=== PATIENT | male | born 1990 | race Two or more races ===

== ENCOUNTER 2021-07-29 09:27 | Inpatient (IN) | payer OTHER ==
[~2021-07-29] VITALS: Ht 177.8 cm; Wt 95.0 kg
[2021-07-29] VITALS (13 sets, daily range): BP systolic 96–144; BP diastolic 46–80
--- NOTE | 2021-07-29 10:58 | NUR ---
SS following for discharge planning. Pt's RN contacted SS requesting PAT team referral for Tylenol Overdose. PAT team referral made and Can coming to visit with pt. SS will continue to follow for discharge planning.
--- NOTE | 2021-07-29 10:59 | NUR ---
Patient transferred from [place] for Tylenol overdose. When asked if he intended to kill himself, patient states, "no, I just had such a bad migraine headache and my and I were arguing that I took a whole bunch of tylenol." Describes taking 2 small bottles of unknown strength of tylenol, bottles were half to 3/4 full.
[2021-07-29 11:20] LABS: BASO % 0 % (0-3); EOS % 0 % (0-3); HEMATOCRIT 43.2 % (39.0-53.0); HEMOGLOBIN 15.2 g/dL (13.0-17.5); LYMPH # 1.9 x10^3/uL (1.0-4.8); LYMPH % 29 % (24-48); MEAN CORPUSCULAR HEMOGLOBIN 30 pg (25-35); MEAN CORPUSCULAR HGB CONC 35 g/dL (31-37); MEAN CORPUSCULAR VOLUME 86 fL (79-100); MONO # 0.4 x10^3/uL (0.0-1.1); MONO % 7 % (0-9); NEUT # 4.1 x10^3/uL (1.8-7.7); NEUT % 63 % (31-73); PLATELET COUNT 192 x10^3/uL (140-400); RED BLOOD COUNT 5.01 x10^6/uL (4.30-5.70); RED CELL DISTRIBUTION WIDTH 12.5 % (11.5-14.5); WHITE BLOOD COUNT 6.5 x10^3/uL (4.0-11.0)
[2021-07-29 11:38] LABS: ALBUMIN 3.7 g/dL (3.4-5.0); CALCIUM 8.7 mg/dL (8.5-10.1); CREATININE 1.3 mg/dL (0.7-1.3); GFR 64.8; TOTAL BILIRUBIN 0.7 mg/dL (0.2-1.0); TOTAL PROTEIN 7.3 g/dL (6.4-8.2)
[2021-07-29 11:45] LABS: ACETAMIN 77.4 mcg/ml (10-30)
--- NOTE | 2021-07-29 12:11 | PDOC1 ---
History and Physical Date of Service: DOS: DATE: 07/29/21 TIME: 11:56 Chief Complaint: Chief Complain: Tylenol ingestion and overdose History of Present Illness: HPI: 31-year-old otherwise healthy male who presents to this facility after being transferred from [facility] for Tylenol overdose. Apparently patient was having argument with spouse and he was trying to look for the spouse after she ran away. He pulled aside to the parking lot because of a headache. Apparently he stated he took Tylenol and ibuprofen but he was not trying to harm himself. He is not certain how much he took but he brought the handfuls of any ticks probably about 20 which is about a handful of Tylenol and ibuprofen. Most of the medication came from 3 bottles which were 500 mg tablets and some 650 extended release tablets. Patient seen this morning at bedside with no complaints. Denies any nausea vomiting or headaches or abdominal pain or jaundice seen.. Past Medical/Surgical History: PMH/PSH: No pertinent past medical or past surgical history Allergies: Allergies: Coded Allergies: No Known Drug Allergies (Unverified , 07/29/21) Family History: Family History: No relevant findings in the chart and reviewed Social History: Social History: Denies any alcohol, tobacco or drug abuse Current Medications: Current Medications Denies any current medications ROS: Review of Systems Review of System REVIEW OF SYSTEMS: GENERAL: Denies weakness SKIN: No bruising, hair changes or rashes. EYES: No blurred, double or loss of vision. NOSE AND THROAT: No history of nosebleeds, hoarseness or sore throat. HEART: No history of palpitations, chest pain or shortness of breath on exertion. LUNGS: Denies cough, hemoptysis, wheezing or shortness of breath. GASTROINTESTINAL: Denies changes in appetite, nausea, vomiting, diarrhea or constipation. GENITOURINARY: No history of frequency, urgency, hesitancy or nocturia. NEUROLOGIC: Denies history of numbness, tingling, or tremor. PSYCHIATRIC: No history of panic, anxiety or depression. ENDOCRINE: No history of heat or cold intolerance, polyuria or polydipsia. EXTREMITIES: Denies joint pain, pain on walking or stiffness. Physical Exam: Vital Signs: Vital Signs Date Time Temp Pulse Resp B/P (MAP) Pulse Ox O2 Delivery O2 Flow Rate FiO2 4/21/22 11:22 98.2 61 18 127/64 (85) 99 Room Air 98.2 Physcial Exam: GEN: No apparent distress. Alert and oriented HEENT: Normal cephalic, atraumatic, external auditory canals are patent EYES: Extraocular muscles are intact, pupil are equally round and reactive to light and accommodation MUSCULOSKELETAL: Well developed , well nourished, good range of motion ENDOCRINE: No thyromegaly was palpated LYMPHATICS: No cervical chain or axillary nodes were noted HEMATOPOIETIC: No bruising NECK: Supple, no JVD, no thyromegaly was noted LUNGS: Clear to auscultation in all lung meier without rhonchi or wheezing HEART: RRR, S!, S2 present. Peripheral pulses intact, no obvious murmurs noted ABDOMEN: Soft, nontender. Positive bowel sounds, no organomegaly, normal bowel sounds EXTREMITIES: Without clubbing, cyanosis, or edema. Pedal pulses intact. Negative Homans sign NEUROLOGIC: Normal speech and tone. A&O x 3, moves all extremities, no obvious focal deficits PSYCHIATRIC: Normal affect, normal mood. Stable SKIN: No ulcerations or rashes, good skin turgor, no jaundice VASCULAR: Good capillary refill, neurovascular bundle appears to be intact Labs: Labs: Laboratory Tests Test 07/29/21 11:05 White Blood Count 6.5 x10^3/uL (4.0-11.0) Red Blood Count 5.01 x10^6/uL (4.30-5.70) Hemoglobin 15.2 g/dL (13.0-17.5) Hematocrit 43.2 % (39.0-53.0) Mean Corpuscular Volume 86 fL (79-100) Mean Corpuscular Hemoglobin 30 pg (25-35) Mean Corpuscular Hemoglobin Concent 35 g/dL (31-37) Red Cell Distribution Width 12.5 % (11.5-14.5) Platelet Count 192 x10^3/uL (140-400) Neutrophils (%) (Auto) 63 % (31-73) Lymphocytes (%) (Auto) 29 % (24-48) Monocytes (%) (Auto) 7 % (0-9) Eosinophils (%) (Auto) 0 % (0-3) Basophils (%) (Auto) 0 % (0-3) Neutrophils # (Auto) 4.1 x10^3/uL (1.8-7.7) Lymphocytes # (Auto) 1.9 x10^3/uL (1.0-4.8) Monocytes # (Auto) 0.4 x10^3/uL (0.0-1.1) Eosinophils # (Auto) 0.0 x10^3/uL (0.0-0.7) Basophils # (Auto) 0.0 x10^3/uL (0.0-0.2) Sodium Level 138 mmol/L (136-145) Potassium Level 3.0 mmol/L (3.5-5.1) Chloride Level 101 mmol/L (98-107) Carbon Dioxide Level 24 mmol/L (21-32) Anion Gap 13 (6-14) Blood Urea Nitrogen 17 mg/dL (8-26) Creatinine 1.3 mg/dL (0.7-1.3) Estimated GFR (Cockcroft-Gault) 64.8 BUN/Creatinine Ratio 13 (6-20) Glucose Level 132 mg/dL (70-99) Calcium Level 8.7 mg/dL (8.5-10.1) Total Bilirubin 0.7 mg/dL (0.2-1.0) Aspartate Amino Transf (AST/SGOT) 56 U/L (15-37) Alanine Aminotransferase (ALT/SGPT) 69 U/L (16-63) Alkaline Phosphatase 61 U/L (46-116) Total Protein 7.3 g/dL (6.4-8.2) Albumin 3.7 g/dL (3.4-5.0) Albumin/Globulin Ratio 1.0 (1.0-1.7) Acetaminophen Level 77.4 mcg/ml (10-30) Acetaminophen Last Dose Date 07/28/21 Acetaminophen Last Dose Time 1500 Laboratory Tests Test 07/29/21 11:05 White Blood Count 6.5 x10^3/uL (4.0-11.0) Red Blood Count 5.01 x10^6/uL (4.30-5.70) Hemoglobin 15.2 g/dL (13.0-17.5) Hematocrit 43.2 % (39.0-53.0) Mean Corpuscular Volume 86 fL (79-100) Mean Corpuscular Hemoglobin 30 pg (25-35) Mean Corpuscular Hemoglobin Concent 35 g/dL (31-37) Red Cell Distribution Width 12.5 % (11.5-14.5) Platelet Count 192 x10^3/uL (140-400) Neutrophils (%) (Auto) 63 % (31-73) Lymphocytes (%) (Auto) 29 % (24-48) Monocytes (%) (Auto) 7 % (0-9) Eosinophils (%) (Auto) 0 % (0-3) Basophils (%) (Auto) 0 % (0-3) Neutrophils # (Auto) 4.1 x10^3/uL (1.8-7.7) Lymphocytes # (Auto) 1.9 x10^3/uL (1.0-4.8) Monocytes # (Auto) 0.4 x10^3/uL (0.0-1.1) Eosinophils # (Auto) 0.0 x10^3/uL (0.0-0.7) Basophils # (Auto) 0.0 x10^3/uL (0.0-0.2) Sodium Level 138 mmol/L (136-145) Potassium Level 3.0 mmol/L (3.5-5.1) Chloride Level 101 mmol/L (98-107) Carbon Dioxide Level 24 mmol/L (21-32) Anion Gap 13 (6-14) Blood Urea Nitrogen 17 mg/dL (8-26) Creatinine 1.3 mg/dL (0.7-1.3) Estimated GFR (Cockcroft-Gault) 64.8 BUN/Creatinine Ratio 13 (6-20) Glucose Level 132 mg/dL (70-99) Calcium Level 8.7 mg/dL (8.5-10.1) Total Bilirubin 0.7 mg/dL (0.2-1.0) Aspartate Amino Transf (AST/SGOT) 56 U/L (15-37) Alanine Aminotransferase (ALT/SGPT) 69 U/L (16-63) Alkaline Phosphatase 61 U/L (46-116) Total Protein 7.3 g/dL (6.4-8.2) Albumin 3.7 g/dL (3.4-5.0) Albumin/Globulin Ratio 1.0 (1.0-1.7) Acetaminophen Level 77.4 mcg/ml (10-30) Acetaminophen Last Dose Date 07/28/21 Acetaminophen Last Dose Time 1500 Images: Images No recent images to review Assessment/Plan Assessment/Plan Unintentional acetaminophen overdose Mildly elevated LFTs Lactic acidemia Hypokalemia Admit to ICU for further management Continue 21-hour IV Mucomyst infusion Repeat LFTs in the morning Serial abdominal exams IV KCl replacement Continue IV fluids SCD for DVT prophylaxis Protonix GI prophylaxis Regular diet CODE STATUS full Discussed with RN and SW Disposition inpatient management as above DPOA: Spouse A total of 32 minutes of critical care time was spent in reviewing chart, labs, and images. Discussed with RN and SW. Justifications for Admission Other Justification TINO BARRAZA MD Jul 29, 2021 12:11
[2021-07-29] MEDS ORDERED: ONDANSETRON PF 4 MG/2 ML VIAL. IVP PRN (12:15)
[2021-07-29] MEDS ORDERED: DOCUSATE SODIUM 100 MG CAPSULE. PO PRN (12:15)
[2021-07-29] MEDS ORDERED: SENNOSIDES 8.6 MG TABLET PO PRN (12:15)
[2021-07-29] MEDS: POTASSIUM CHLORIDE 20 MEQ TABLET.ER. PO SCH ×2 (12:23→21:17)
[2021-07-29 17:28] LABS: TOTAL BILIRUBIN 0.5 mg/dL (0.2-1.0)
[2021-07-29 17:57] LABS: ACETAMIN 29.9 mcg/ml (10-30)
--- NOTE | 2021-07-29 18:29 | NUR ---
Poison control called and lab results provided to them. Recommendation is to continue acetylcysteine gtt overnight and recheck liver panel, acetaminophen and PT/INR in a.m.
[2021-07-29] MEDS ORDERED: ACETYLCYSTEINE IV SCH ×3 (18:30→21:30)
[2021-07-29] MEDS ORDERED: DEXTROSE 5% IV SCH ×3 (18:30→21:30)
[2021-07-30] VITALS (9 sets, daily range): BP systolic 112–144; BP diastolic 61–85
[2021-07-30 07:19] LABS: BASO % 1 % (0-3); EOS # 0.1 x10^3/uL (0.0-0.7); EOS % 1 % (0-3); HEMATOCRIT 43.2 % (39.0-53.0); HEMOGLOBIN 14.9 g/dL (13.0-17.5); LYMPH # 1.9 x10^3/uL (1.0-4.8); LYMPH % 36 % (24-48); MEAN CORPUSCULAR HEMOGLOBIN 30 pg (25-35); MEAN CORPUSCULAR HGB CONC 35 g/dL (31-37); MEAN CORPUSCULAR VOLUME 87 fL (79-100); MONO # 0.4 x10^3/uL (0.0-1.1); MONO % 8 % (0-9); NEUT # 2.9 x10^3/uL (1.8-7.7); NEUT % 54 % (31-73); PLATELET COUNT 156 x10^3/uL (140-400); RED BLOOD COUNT 4.99 x10^6/uL (4.30-5.70); RED CELL DISTRIBUTION WIDTH 12.3 % (11.5-14.5); WHITE BLOOD COUNT 5.3 x10^3/uL (4.0-11.0)
[2021-07-30 07:28] LABS: ALBUMIN 3.1 g/dL (3.4-5.0); CALCIUM 8.6 mg/dL (8.5-10.1); CREATININE 1.1 mg/dL (0.7-1.3); GFR 78.6; MAGNESIUM 1.8 mg/dL (1.8-2.4); PHOSPHORUS 2.9 mg/dL (2.6-4.7); POTASSIUM 3.9 mmol/L (3.5-5.1); TOTAL BILIRUBIN 0.7 mg/dL (0.2-1.0); TOTAL PROTEIN 6.3 g/dL (6.4-8.2)
[2021-07-30 07:30] LABS: ACETAMIN < 2 mcg/ml (10-30)
--- NOTE | 2021-07-30 10:52 | PDOC3 ---
Discharge Summary Visit Information Date of Admission: Jul 29, 2021 Date of Discharge: Jul 30, 2021 Final Diagnosis headache Unintentional acetaminophen overdose Mildly elevated LFTs Lactic acidemia Hypokalemia Brief Hospital Course Allergies Allergies Coded Allergies Type Severity Reaction Last Updated Verified No Known Drug Allergies 07/29/21 No Vital Signs Vital Signs Date Time Temp Pulse Resp B/P (MAP) Pulse Ox O2 Delivery O2 Flow Rate FiO2 07/30/21 08:00 98.5 72 18 132/71 (91) 99 Room Air 98.5 Lab Results Laboratory Tests Test 07/29/21 11:05 07/29/21 16:48 07/30/21 06:50 White Blood Count 6.5 x10^3/uL (4.0-11.0) 5.3 x10^3/uL (4.0-11.0) Red Blood Count 5.01 x10^6/uL (4.30-5.70) 4.99 x10^6/uL (4.30-5.70) Hemoglobin 15.2 g/dL (13.0-17.5) 14.9 g/dL (13.0-17.5) Hematocrit 43.2 % (39.0-53.0) 43.2 % (39.0-53.0) Mean Corpuscular Volume 86 fL (79-100) 87 fL (79-100) Mean Corpuscular Hemoglobin 30 pg (25-35) 30 pg (25-35) Mean Corpuscular Hemoglobin Concent 35 g/dL (31-37) 35 g/dL (31-37) Red Cell Distribution Width 12.5 % (11.5-14.5) 12.3 % (11.5-14.5) Platelet Count 192 x10^3/uL (140-400) 156 x10^3/uL (140-400) Neutrophils (%) (Auto) 63 % (31-73) 54 % (31-73) Lymphocytes (%) (Auto) 29 % (24-48) 36 % (24-48) Monocytes (%) (Auto) 7 % (0-9) 8 % (0-9) Eosinophils (%) (Auto) 0 % (0-3) 1 % (0-3) Basophils (%) (Auto) 0 % (0-3) 1 % (0-3) Neutrophils # (Auto) 4.1 x10^3/uL (1.8-7.7) 2.9 x10^3/uL (1.8-7.7) Lymphocytes # (Auto) 1.9 x10^3/uL (1.0-4.8) 1.9 x10^3/uL (1.0-4.8) Monocytes # (Auto) 0.4 x10^3/uL (0.0-1.1) 0.4 x10^3/uL (0.0-1.1) Eosinophils # (Auto) 0.0 x10^3/uL (0.0-0.7) 0.1 x10^3/uL (0.0-0.7) Basophils # (Auto) 0.0 x10^3/uL (0.0-0.2) 0.0 x10^3/uL (0.0-0.2) Sodium Level 138 mmol/L (136-145) 138 mmol/L (136-145) Potassium Level 3.0 mmol/L (3.5-5.1) 3.9 mmol/L (3.5-5.1) Chloride Level 101 mmol/L (98-107) 105 mmol/L (98-107) Carbon Dioxide Level 24 mmol/L (21-32) 24 mmol/L (21-32) Anion Gap 13 (6-14) 9 (6-14) Blood Urea Nitrogen 17 mg/dL (8-26) 12 mg/dL (8-26) Creatinine 1.3 mg/dL (0.7-1.3) 1.1 mg/dL (0.7-1.3) Estimated GFR (Cockcroft-Gault) 64.8 78.6 BUN/Creatinine Ratio 13 (6-20) 11 (6-20) Glucose Level 132 mg/dL (70-99) 96 mg/dL (70-99) Calcium Level 8.7 mg/dL (8.5-10.1) 8.6 mg/dL (8.5-10.1) Total Bilirubin 0.7 mg/dL (0.2-1.0) 0.5 mg/dL (0.2-1.0) 0.7 mg/dL (0.2-1.0) Aspartate Amino Transf (AST/SGOT) 56 U/L (15-37) 46 U/L (15-37) 36 U/L (15-37) Alanine Aminotransferase (ALT/SGPT) 69 U/L (16-63) 65 U/L (16-63) 58 U/L (16-63) Alkaline Phosphatase 61 U/L (46-116) 57 U/L (46-116) Total Protein 7.3 g/dL (6.4-8.2) 6.3 g/dL (6.4-8.2) Albumin 3.7 g/dL (3.4-5.0) 3.1 g/dL (3.4-5.0) Albumin/Globulin Ratio 1.0 (1.0-1.7) 1.0 (1.0-1.7) Acetaminophen Level 77.4 mcg/ml (10-30) 29.9 mcg/ml (10-30) < 2 mcg/ml (10-30) Acetaminophen Last Dose Date 07/28/21 Unknown 07/28/21 Acetaminophen Last Dose Time 1500 Unknown 1500 Prothrombin Time 16.0 SEC (11.7-14.0) 17.0 SEC (11.7-14.0) Prothromb Time International Ratio 1.3 (0.8-1.1) 1.4 (0.8-1.1) Phosphorus Level 2.9 mg/dL (2.6-4.7) Magnesium Level 1.8 mg/dL (1.8-2.4) Direct Bilirubin 0.2 mg/dL (0.0-0.2) Laboratory Tests Test 07/29/21 11:05 07/29/21 16:48 07/30/21 06:50 White Blood Count 6.5 x10^3/uL (4.0-11.0) 5.3 x10^3/uL (4.0-11.0) Red Blood Count 5.01 x10^6/uL (4.30-5.70) 4.99 x10^6/uL (4.30-5.70) Hemoglobin 15.2 g/dL (13.0-17.5) 14.9 g/dL (13.0-17.5) Hematocrit 43.2 % (39.0-53.0) 43.2 % (39.0-53.0) Mean Corpuscular Volume 86 fL (79-100) 87 fL (79-100) Mean Corpuscular Hemoglobin 30 pg (25-35) 30 pg (25-35) Mean Corpuscular Hemoglobin Concent 35 g/dL (31-37) 35 g/dL (31-37) Red Cell Distribution Width 12.5 % (11.5-14.5) 12.3 % (11.5-14.5) Platelet Count 192 x10^3/uL (140-400) 156 x10^3/uL (140-400) Neutrophils (%) (Auto) 63 % (31-73) 54 % (31-73) Lymphocytes (%) (Auto) 29 % (24-48) 36 % (24-48) Monocytes (%) (Auto) 7 % (0-9) 8 % (0-9) Eosinophils (%) (Auto) 0 % (0-3) 1 % (0-3) Basophils (%) (Auto) 0 % (0-3) 1 % (0-3) Neutrophils # (Auto) 4.1 x10^3/uL (1.8-7.7) 2.9 x10^3/uL (1.8-7.7) Lymphocytes # (Auto) 1.9 x10^3/uL (1.0-4.8) 1.9 x10^3/uL (1.0-4.8) Monocytes # (Auto) 0.4 x10^3/uL (0.0-1.1) 0.4 x10^3/uL (0.0-1.1) Eosinophils # (Auto) 0.0 x10^3/uL (0.0-0.7) 0.1 x10^3/uL (0.0-0.7) Basophils # (Auto) 0.0 x10^3/uL (0.0-0.2) 0.0 x10^3/uL (0.0-0.2) Sodium Level 138 mmol/L (136-145) 138 mmol/L (136-145) Potassium Level 3.0 mmol/L (3.5-5.1) 3.9 mmol/L (3.5-5.1) Chloride Level 101 mmol/L (98-107) 105 mmol/L (98-107) Carbon Dioxide Level 24 mmol/L (21-32) 24 mmol/L (21-32) Anion Gap 13 (6-14) 9 (6-14) Blood Urea Nitrogen 17 mg/dL (8-26) 12 mg/dL (8-26) Creatinine 1.3 mg/dL (0.7-1.3) 1.1 mg/dL (0.7-1.3) Estimated GFR (Cockcroft-Gault) 64.8 78.6 BUN/Creatinine Ratio 13 (6-20) 11 (6-20) Glucose Level 132 mg/dL (70-99) 96 mg/dL (70-99) Calcium Level 8.7 mg/dL (8.5-10.1) 8.6 mg/dL (8.5-10.1) Total Bilirubin 0.7 mg/dL (0.2-1.0) 0.5 mg/dL (0.2-1.0) 0.7 mg/dL (0.2-1.0) Aspartate Amino Transf (AST/SGOT) 56 U/L (15-37) 46 U/L (15-37) 36 U/L (15-37) Alanine Aminotransferase (ALT/SGPT) 69 U/L (16-63) 65 U/L (16-63) 58 U/L (16-63) Alkaline Phosphatase 61 U/L (46-116) 57 U/L (46-116) Total Protein 7.3 g/dL (6.4-8.2) 6.3 g/dL (6.4-8.2) Albumin 3.7 g/dL (3.4-5.0) 3.1 g/dL (3.4-5.0) Albumin/Globulin Ratio 1.0 (1.0-1.7) 1.0 (1.0-1.7) Acetaminophen Level 77.4 mcg/ml (10-30) 29.9 mcg/ml (10-30) < 2 mcg/ml (10-30) Acetaminophen Last Dose Date 07/28/21 Unknown 07/28/21 Acetaminophen Last Dose Time 1500 Unknown 1500 Prothrombin Time 16.0 SEC (11.7-14.0) 17.0 SEC (11.7-14.0) Prothromb Time International Ratio 1.3 (0.8-1.1) 1.4 (0.8-1.1) Phosphorus Level 2.9 mg/dL (2.6-4.7) Magnesium Level 1.8 mg/dL (1.8-2.4) Direct Bilirubin 0.2 mg/dL (0.0-0.2) Brief Hospital Course Mr. Avery is a 31 old transferred from [facility] for Tylenol overdose. He stated he took Tylenol and ibuprofen for a headache but he was not trying to harm himself. He was not certain how much he took. Initial tylneol level 77, then 29, in AM <2 cleared by psych team and by poison contorl Discharge Information Condition at Discharge: Improved Follow Up: Weeks Disposition/Orders: D/C to Home Patient Instructions Patient Instructions pt seen face to face at [place] from icu 31 minutes total time 2 visitis Justicifation of Admission Dx: Justifications for Admission: Justification of Admission Dx: N/A ESTEBAN STRONG MD Jul 30, 2021 10:52
== END 2021-07-30 11:57 | disposition home or self-care (01) | DRG 918 ==
LOC: 1 WEST ICU 09:27
PROVIDERS: ADMIT Internal Medicine; ATTEND Internal Medicine
DX: T39.1X1A Poisoning by 4-Aminophenol derivatives, accidental (unintentional), initial encounter (principal); E87.2 Acidosis; E87.6 Hypokalemia; Y92.89 Other specified places as the place of occurrence of the external cause
CPT/HCPCS: 36415; 80053; 80329; 82247; 82248; 83735; 84100; 84450; 84460; 85025; 85610; J0132; J7060; G0378; G0480